=== PATIENT | male | born 1970 | race Caucasian/White ===

== ENCOUNTER 2016-06-08 20:17 | Emergency (ER) | payer BC ==
[~2016-06-08 20:17] MED LIST: ADVIL PO; AMOXICILLIN PO; DEX4 PO; DSS PO; ENDOCET1 TA3 PO; HUMI PO; PROTONIX PO; T PO; ZOFRAN4 PO; ZOVI200CAP PO
[2016-06-08 21:46] LABS: ER CBC TAT 0 Hrs 16 Mins; HEMATOCRIT 21.2 % (40.0-51.0); HEMOGLOBIN 7.2 g/dL (13.6-17.8); MEAN CORPUSCULAR HEMOGLOB 30.5 pg (26.0-34.0); MEAN CORPUSCULAR VOLUME 89.8 fL (80-100); MEAN PLATELET VOLUME 10.6 fL (9.2-13.0); PLATELET COUNT 85 10/3/uL (150-400); RBC DISTRIBUTION WIDTH 15.8 % (12.0-16.0); RED CELL COUNT 2.36 10/6/uL (4.7-6.1)
[2016-06-08 21:47] LABS: MANUAL DIFF YES %
[2016-06-08 21:54] LABS: CHLORIDE, SERUM 97 MMOL/L (96-112); POTASSIUM, SERUM 4.7 MMOL/L (3.5-5.3); SGOT(AST) 8 U/L (5-40); SGPT(ALT) 21 U/L (5-65); SODIUM, SERUM 136 MMOL/L (135-148); TOTAL BILIRUBIN 0.3 MG/DL (0-1.2)
[2016-06-08 21:55] LABS: A/G RATIO 1.1 (0.7-1.9); ALKALINE PHOSPHATASE 106 U/L (45-117); BUN (BLOOD UREA NITROGEN) 51 MG/DL (6-23); CO2 (CARBON DIOXIDE) 30 MMOL/L (24-34); CREATININE 8.63 MG/DL (0.70-1.30); GFR AFRICAN AMERICAN 8 ML/MIN (>=60); GFR NON AFRICAN AMERICAN 7 ML/MIN (>=60); GLOBULIN 2.8 G/DL (2.5-4.1); GLUCOSE, SERUM 119 MG/DL (60-99); TOTAL PROTEIN 5.8 G/DL (6.0-8.5)
[2016-06-08 21:55] LABS: ASCORBIC ACID (UR NOT ORDER) NEG (NEG); BILIRUBIN, URINE NEGATIVE (NEG); ER URINALYSIS TAT 0 Hrs 25 Mins; KETONE, URINE NEGATIVE (NEG); LEUKOCYTE ESTERASE(NOT OR TRACE (NEG); NITRITE (URINE) NEG (NEG); WBC (NOT ORDERED) (RFLEX) 5 (0-5)
[2016-06-08 21:57] LABS: LACTATE 0.6 MMOL/L (0.3-2.4)
[2016-06-08 22:01] LABS: INFLUENZA A SCREEN NEGATIVE (NEGATIVE); INFLUENZA B SCREEN NEGATIVE (NEGATIVE)
[2016-06-08 22:33] LABS: BAND NEUTROPHILS 1 %; EOSINOPHILS 1 %; EOSINOPHILS ABSOLUTE (CALC) 0.04 10/3/uL (0.0-0.53); ER DIFF TAT 1 Hrs 03 Mins; LYMPHOCYTES 7 %; LYMPHOCYTES ABSOLUTE (CALC) 0.28 10/3/uL (0.67-4.30); MONOCYTES 2 %; MONOCYTES ABSOLUTE (CALC) 0.08 10/3/uL (0.21-1.20); SEGMENTED NEUTROPHIL (0) 89 %; TOTAL NUCLEATED CELLS 100
[2016-06-08 22:34] LABS: ATYPICAL LYMPH OCC (0-2%) (0-5%); PLATELET ESTIMATE DEC (ADEQUATE)
[2016-10-11] MEDS ORDERED: ZOVI200CAP PO (17:45)
[2016-10-11] MEDS ORDERED: DEX4 PO (17:50)
[2016-10-11] MEDS ORDERED: RENVELA800 MG PO (17:52)
[2016-10-11] MEDS ORDERED: PROTONIX PO (17:52)
[2016-10-11] MEDS ORDERED: ROCALTROL0.5 MCG PO (17:53)
[2016-10-11] MEDS ORDERED: SPIRULINA500 MG PO (17:54)
[2016-10-11] MEDS ORDERED: CLARIT10 PO (17:54)
[2016-10-11] MEDS ORDERED: MAGNESIUM PO (17:54)
[2016-10-11] MEDS ORDERED: TUMSROLL PO (17:55)
[2016-10-11] MEDS ORDERED: REFRESH OPH (17:57)
== END 2016-06-09 01:07 | disposition home or self-care (01) ==
LOC: ER 20:17
PROVIDERS: Emergency Medicine
DX: R50.9 Fever, unspecified (principal); C90.00 Multiple myeloma not having achieved remission; N18.6 End stage renal disease; Z79.899 Other long term (current) drug therapy
CPT/HCPCS: 71010; 80053; 81001; 83605; 85025; 87040; 87804; 93005; 96365; 96368; 99284; J1956; J3370

== ENCOUNTER 2016-06-13 18:47 | Inpatient (IN) | payer BC ==
--- NOTE | ~2016-06-13 | OP ---
Record Of Operation [facility] [address] [place]. [address] NAME: ALEKS DRUMMOND III : 70 STATUS : ADM IN PAT#: [id number] AGE: 46 ADM/REG DATE : 06/13/16 MR#: [id number] REPORT SERV DATE: 06/17/16 DICTATED BY: RANJIT PICHARDO JR. DATE: 06/17/16 REPORT STATUS : Draft TRANSCRIBED BY: MODL DATE: 06/17/16 DATE OF PROCEDURE: 06/17/2016 PREOPERATIVE DIAGNOSIS: End-stage renal disease secondary to multiple myeloma. POSTOPERATIVE DIAGNOSIS: End-stage renal disease secondary to multiple myeloma. OPERATION: Left Mahesh fistula. SURGEON: Ranjit Pichardo M.D. HISTORY: This is a 46-year-old white male, who has multiple myeloma and starting dialysis. He already has a PermCath catheter. PROCEDURE IN DETAIL: The patient was placed on the operating room table. The left arm was prepped and draped in usual sterile manner. Ultrasound machine was used to look for a vein. A suitable vein was found. A transverse incision was made just proximal to the left wrist. The cephalic vein was identified and dissected out proximally and distally. The radial artery was likewise dissected out proximally and distally. The vein was transected distally and swung in a medial fashion over to the artery where an end-to-side anastomosis was done with spatulation using 6-0 Prolene suture. Upon release of clamps, there was excellent flow up into the vein. Care was taken to make sure the vein was not kinked. The subcutaneous tissue was closed with 4-0 Vicryl. The patient tolerated the procedure well and taken back to recovery room in fair condition. There were no intraoperative complications. Estimated blood loss was negligible. DF/ABNER Ranjit Pichardo Jr., M.D. / [id number] CC: Lee Teresa Franklin H
--- NOTE | ~2016-06-13 | HP ---
History And Physical [address] [facility] [place]. [address] NAME: ALEKS DRUMMOND III : 70 STATUS : ADM IN PAT#: [id number] AGE: 46 ADM/REG DATE : 06/13/16 MR#: [id number] REPORT SERV DATE: 06/13/16 DICTATED BY: AVINASH SOSA DATE: 06/13/16 REPORT STATUS : Draft TRANSCRIBED BY: MODL DATE: 06/13/16 DATE OF ADMISSION: 06/13/2016 HISTORY OF PRESENT ILLNESS: Mr. Drummond is a 46-year-old white male with multiple myeloma and acute renal failure, hemodialysis as an outpatient at [facility] on Friday, Friday, Friday. His last dialysis was on Friday and no problems today, went to work. He works at the [employer]. He did well, came home, bit tired, did not feel his normal self and his noted he was running a fever, came to the emergency room and temperature here was 101, and admitted to the hospital for antibiotics. He had a similar event last Friday. He came to the emergency room, was given antibiotics and sent home. He did not receive any further antibiotics as an outpatient as he did not have any further fever and cultures done then are negative now at four days. HOME MEDICATIONS: Acyclovir, calcium carbonate, cyclophosphamide 50 mg capsule total of 675 mg p.o. every seven days, dexamethasone 4 mg tablets 40 mg daily 4 days on, 4 days off, Zofran 4 mg q.4 hours p.r.n. nausea and vomiting, Protonix 40 mg daily, Renvela 800 mg three times a day with meals. ALLERGIES: NO KNOWN DRUG ALLERGIES. REVIEW OF SYSTEMS: Feeling great. Dialyzing without a problem. Right IJ PermCath. Very complimentary of the staff at [facility]. Enjoying his work. His says he has been his normal self, cooking, feeling good, assisting around the house, and feeling well until today. He did have a problem on Friday last week, when he felt weak and tired, but overall is without complaints until today. SOCIAL HISTORY: . Working at the [employer]. He does not abuse alcohol, stopped alcohol completely last December. Did smoke in the past, but none recently. No illicit substance abuse. FAMILY HISTORY: Both parents are doing well with skin cancers, but no kidney disease. No one has been sick around his home. The does not have any fever or chills. PHYSICAL EXAMINATION: VITAL SIGNS: Blood pressure is 150/89, respirations 16, temperature 100.8, oxygenation 97% on room air. GENERAL: Alert, cooperative, and in no acute distress. Oriented x3. says he is making sense and good memory. HEENT: Otherwise unremarkable. Right IJ PermCath, nontender to palpation. LUNGS: Clear. CARDIAC: Without murmurs, gallops, or rubs. ABDOMEN: Soft, benign. Bowel sounds present. Nontender. No megaly. EXTREMITIES: With no edema. Good pulses. No AV fistula and no open sores. Good range of motion. NEUROLOGICALLY: Intact without any weakness detectable and normal reflexes. History And Physical [address] [address] NAME: ALEKS DRUMMOND III : 70 STATUS : ADM IN [facility]#: [id number] AGE: 46 ADM/REG DATE : 06/13/16 MR#: [id number] REPORT SERV DATE: 06/13/16 DICTATED BY: AVINASH SOSA DATE: 06/13/16 REPORT STATUS : Draft TRANSCRIBED BY: ABNRE DATE: 06/13/16 LABORATORY DATA: Sodium 137, potassium 4.0, chloride 96, CO2 of 28, with a BUN of 51, creatinine 7.74, glucose 90, calcium 6.9. Total protein 6.3, albumin 3.4. Normal liver enzymes except for elevated alkaline phos 130. White count of 3.1, hemoglobin 8.5, hematocrit 25.3, and platelet count 98,000. Chest x-ray, no acute cardiopulmonary processes is radiographically evident with right IJ central line tip remaining in superior vena cava. No pneumothorax present. No bony lesions identified significance. ASSESSMENT: 1. Febrile in a patient with multiple myeloma undergoing chemotherapy. We will admit. Vancomycin and Zosyn ordered. Dr. Quinn Benitez will see in a.m. 2. Acute renal failure secondary to multiple myeloma. May well be at end-stage renal disease, but at present, he is being treated like acute renal failure with the Perma cath. No AV fistula placement. No tenderness at the site of his PermCath placement. 3. Anemia of multiple myeloma, not getting any erythropoietin. 4. Past history left arm rotator cuff injury and bone spur treated surgically in December 2015. History of cat scratch fever as a teenager at age 19. 5. Multiple myeloma with lytic bone lesions. Treated with chemotherapy, currently on cyclophosphamide, Velcade, Decadron. PLAN: We will admit. Hemodialysis tomorrow. Dr. Benitez will see in a.m. and we will hold chemo till Dr. Benitez sees him. Tomorrow is his last dose of cyclosporine ordered. Yesterday was his fourth day in a row of Decadron and Velcade not ordered for some time (monthly). MARITA/ABNER Avinash Sosa M.D. / [id number] CC: Lee Teresa M.D.
--- NOTE | ~2016-06-13 | DS ---
Discharge Summary [facility] [address] [facility] [place]. [address] NAME: ALEKS DRUMMOND III : 70 STATUS : DIS IN PAT#: [id number] AGE: 46 ADM/REG DATE : 06/13/16 MR#: [id number] REPORT SERV DATE: 06/27/16 DICTATED BY: AVINASH SOSA DATE: 06/26/16 REPORT STATUS : Draft TRANSCRIBED BY: MODAruna DATE: 06/26/16 Data Collection from hospitalization DISCHARGE DIAGNOSES: 1. Acute kidney injury secondary to multiple [id number] renal disease. 2. Multiple myeloma. 3. Sepsis. 4. Anemia. 5. Former smoker. CONSULTATIONS: 1. Ranjit Pichardo M.D. 2. Levi Wheeler M.D. PROCEDURES PERFORMED: Left Mahesh fistula 06/17/2016. DISCHARGE MEDICATIONS: 1. Zovirax 200 mg twice a day. 2. Tums 1000 mg twice a day. 3. Cyclophosphamide 675 mg every seven days. 4. Decadron 40 mg as instructed. 5. Zofran 4 mg every 4 hours as needed. 6. Percocet 5/325 mg one to two tablets every 3 hours as needed. 7. Protonix 40 mg every morning. 8. Renvela 800 mg three times a day with meals. 9. Vancomycin as instructed. CONDITION AT DISCHARGE: Stable. DISPOSITION: The patient was discharged home on a renal diet with activities as instructed. He would follow up with me as instructed. He would follow up for outpatient dialysis on 06/19/2016. HOSPITAL COURSE: This is a 46-year-old man who has multiple myeloma and acute renal failure. He undergoes hemodialysis as an outpatient at the [facility] on Mondays, Wednesdays, and Fridays. His last dialysis was on Friday prior to admission. He had gone to work on the day of this admission, where he works at the [employer]. He did well and came home. He said he felt a bit tired and did not feel his normal self. His noted that he was running a fever. He came to the emergency room and his temperature was 101. He was admitted to the hospital at this time for further evaluation and treatment. Upon admission, he was placed on vancomycin and Zosyn. The patient had a similar event the Friday prior to this admission and he came to the emergency room and had being given antibiotics and sent home. He did not receive any further antibiotics as an outpatient as he did not have any further fever. Cultures that were done at that time were negative now at four days. White count was 3.1. Chest x-ray showed no acute cardiopulmonary processes with right IJ central line tip remaining in the superior vena cava. No pneumothorax was Discharge Summary [address] [place]. [address] NAME: ALEKS DRUMMOND III : 70 STATUS : DIS IN PAT#: [id number] AGE: 46 ADM/REG DATE : 06/13/16 MR#: [id number] REPORT SERV DATE: 06/27/16 DICTATED BY: AVINASH SOSA DATE: 06/26/16 REPORT STATUS : Draft TRANSCRIBED BY: ABNER DATE: 06/26/16 present. No bony lesion is identified. The patient has acute renal failure secondary to multiple myeloma. It was felt that he may well be at end stage renal disease, but at the present time he was being treated like this was acute renal failure with the PermCath. No AV fistula placement was planned at this time. He had no tenderness at the site of his PermCath placement. He does have anemia of multiple myeloma. He was not receiving any erythropoietin. He does have multiple myeloma with lytic bone lesion. He was being treated with chemotherapy. The following day, he was afebrile. Lungs were clear. Procalcitonin level was 0.68. He was seen by Dr. Levi Wheeler. The patient said he felt great. He had a normal respiratory effort. It was felt that he had a presumed Vas-Cath infection. It is was felt that this had resolved with Zosyn and vancomycin. His cultures were negative to date. He has had pancytopenia secondary to chemotherapy. On the , he remained afebrile on antibiotics. His cultures had revealed no growth. He did develop some loose stools after eating [place] steak. He remained afebrile. It was still suspected that the Vas- Cath was infected. All of his cultures remained negative. Zosyn was stopped. He would receive vancomycin with dialysis. He was seen by Dr. Ranjit Pichardo. The patient was starting dialysis, he already has a PermCath catheter. It was felt that he would need a left Mahesh fistula. The patient was taken to the operating room on 06/17/[address] Ranjit Pichardo, where he underwent the above mentioned procedure. He tolerated this well. There were no complications. His Zosyn had been stopped. He had no new complaints. Hemodialysis therapy was performed. His lungs remained clear. He was afebrile. Discharge instructions were given. Due to his improved and stable condition, he was discharged home with the above-stated instructions. Information collected by: Harleen Payton I submit the above information as my discharge summary. TG/MODL Avinash Sosa M.D. / [id number] CC: Lee Teresa PA-C Daniel Fisher Jr., M.D. Benjamin R Nadeau, MD
[2016-06-13 15:22] LABS: BASOPHILS 0 %; EOSINOPHILS 0 %; ER CBC TAT 0 Hrs 08 Mins; HEMATOCRIT 25.3 % (40.0-51.0); HEMOGLOBIN 8.5 g/dL (13.6-17.8); IMMATURE GRANULOCYTES 2.9 %; IMMATURE GRANULOCYTES ABSOLUTE 0.09 10/3/uL (0.0-0.11); LYMPHOCYTES 11.1 %; LYMPHOCYTES ABSOLUTE 0.34 10/3/uL (0.67-4.30); MANUAL DIFF NO %; MEAN CORPUS HGB CONC 33.6 g/dL (32.0-36.0); MEAN CORPUSCULAR HEMOGLOB 30.1 pg (26.0-34.0); MEAN CORPUSCULAR VOLUME 89.7 fL (80-100); MEAN PLATELET VOLUME 8.9 fL (9.2-13.0); MONOCYTES 9.1 %; MONOCYTES ABSOLUTE 0.28 10/3/uL (0.21-1.20); NEUTROPHILS 76.9 %; NEUTROPHILS ABSOLUTE 2.36 10/3/uL (2.02-8.40); PLATELET COUNT 98 10/3/uL (150-400); RBC DISTRIBUTION WIDTH 15.8 % (12.0-16.0); RED CELL COUNT 2.82 10/6/uL (4.7-6.1); WHITE BLOOD CELLS 3.1 10/3/uL (4.5-10.5)
[2016-06-13 15:36] LABS: A/G RATIO 1.2 (0.7-1.9); ALBUMIN 3.4 G/DL (3.5-5.0); ALKALINE PHOSPHATASE 130 U/L (45-117); BUN (BLOOD UREA NITROGEN) 51 MG/DL (6-23); CALCIUM, SERUM 6.9 MG/DL (8.5-10.4); CHLORIDE, SERUM 96 MMOL/L (96-112); CO2 (CARBON DIOXIDE) 28 MMOL/L (24-34); CREATININE 7.74 MG/DL (0.70-1.30); GFR AFRICAN AMERICAN 9 ML/MIN (>=60); GFR NON AFRICAN AMERICAN 8 ML/MIN (>=60); GLOBULIN 2.9 G/DL (2.5-4.1); GLUCOSE, SERUM 90 MG/DL (60-99); SGOT(AST) 22 U/L (5-40); SGPT(ALT) 34 U/L (5-65); SODIUM, SERUM 137 MMOL/L (135-148); TOTAL BILIRUBIN 0.4 MG/DL (0-1.2); TOTAL PROTEIN 6.3 G/DL (6.0-8.5)
[2016-06-13 18:59] LABS: INFLUENZA A SCREEN NEGATIVE (NEGATIVE); INFLUENZA B SCREEN NEGATIVE (NEGATIVE)
[2016-06-13] MEDS ORDERED: PROTONIX PO (19:59)
[2016-06-13] MEDS ORDERED: CYCLOPHOSPHAMID50 MG PO (20:00)
[2016-06-13] MEDS ORDERED: SEVE800T PO (20:01)
[2016-06-13] MEDS ORDERED: DEX4 PO (20:01)
[2016-06-13] MEDS ORDERED: ZOVI200CAP PO (20:02)
[2016-06-13] MEDS ORDERED: TUMSROLL PO (20:02)
[2016-06-13] MEDS ORDERED: ZOFRAN4 PO (20:02)
[2016-06-13 22:00] LABS: LACTATE 0.4 MMOL/L (0.3-2.4)
[2016-06-13 22:22] LABS: ASCORBIC ACID (UR NOT ORDER) NEG (NEG); BILIRUBIN, URINE NEGATIVE (NEG); KETONE, URINE NEGATIVE (NEG); LEUKOCYTE ESTERASE(NOT OR SMALL (NEG); NITRITE (URINE) NEG (NEG); WBC (NOT ORDERED) (RFLEX) 7 (0-5)
[2016-06-13 22:23] LABS: ER URINALYSIS TAT 0 Hrs 46 Mins
[2016-06-14 05:13] LABS: HEMOGLOBIN 7.4 g/dL (13.6-17.8); MEAN CORPUS HGB CONC 32.9 g/dL (32.0-36.0); MEAN CORPUSCULAR HEMOGLOB 29.6 pg (26.0-34.0); MEAN PLATELET VOLUME 8.7 fL (9.2-13.0); PLATELET COUNT 84 10/3/uL (150-400); RBC DISTRIBUTION WIDTH 16.2 % (12.0-16.0); WHITE BLOOD CELLS 2.7 10/3/uL (4.5-10.5)
[2016-06-14 05:17] LABS: CHLORIDE, SERUM 101 MMOL/L (96-112); CO2 (CARBON DIOXIDE) 25 MMOL/L (24-34); GLUCOSE, SERUM 76 MG/DL (60-99); POTASSIUM, SERUM 4.6 MMOL/L (3.5-5.3); SODIUM, SERUM 139 MMOL/L (135-148)
[2016-06-14 05:24] LABS: ALBUMIN 2.6 G/DL (3.5-5.0); BUN (BLOOD UREA NITROGEN) 65 MG/DL (6-23); CALCIUM, SERUM 6.6 MG/DL (8.5-10.4); CREATININE 9.34 MG/DL (0.70-1.30); GFR AFRICAN AMERICAN 7 ML/MIN (>=60); GFR NON AFRICAN AMERICAN 6 ML/MIN (>=60)
[2016-06-14 05:28] LABS: HEMATOCRIT 22.5 % (40.0-51.0)
[2016-06-14 05:29] LABS: MANUAL DIFF YES %
[2016-06-14 05:51] LABS: BAND NEUTROPHILS 1 %; EOSINOPHILS 1 %; EOSINOPHILS ABSOLUTE (CALC) 0.03 10/3/uL (0.0-0.53); IMMATURE GRANS ABSOLUTE (CALC) 0.03 10/3/uL (0.0-0.11); LYMPHOCYTES 5 %; LYMPHOCYTES ABSOLUTE (CALC) 0.14 10/3/uL (0.67-4.30); METAMYELOCYTES 1 %; MONOCYTES 10 %; MONOCYTES ABSOLUTE (CALC) 0.27 10/3/uL (0.21-1.20); NEUTROPHILS ABSOLUTE (CALC) 2.24 10/3/uL (2.02-8.40); PLATELET ESTIMATE DEC (ADEQUATE); RBC MORPHOLOGY NORM (NORMAL); SEGMENTED NEUTROPHIL (0) 82 %; TOTAL NUCLEATED CELLS 100
[2016-06-14 06:45] LABS: PROCALCITONIN 0.68 ng/mL (<0.5)
[2016-06-15 06:57] LABS: HEMOGLOBIN 7.7 g/dL (13.6-17.8); MEAN CORPUS HGB CONC 32.1 g/dL (32.0-36.0); MEAN CORPUSCULAR HEMOGLOB 29.4 pg (26.0-34.0); MEAN CORPUSCULAR VOLUME 91.6 fL (80-100); MEAN PLATELET VOLUME 8.9 fL (9.2-13.0); PLATELET COUNT 87 10/3/uL (150-400); RED CELL COUNT 2.62 10/6/uL (4.7-6.1)
[2016-06-15 07:14] LABS: ALBUMIN 2.4 G/DL (3.5-5.0); BUN (BLOOD UREA NITROGEN) 41 MG/DL (6-23); CALCIUM, SERUM 6.8 MG/DL (8.5-10.4); CHLORIDE, SERUM 106 MMOL/L (96-112); CO2 (CARBON DIOXIDE) 28 MMOL/L (24-34); CREATININE 7.21 MG/DL (0.70-1.30); GFR AFRICAN AMERICAN 10 ML/MIN (>=60); GFR NON AFRICAN AMERICAN 8 ML/MIN (>=60); GLUCOSE, SERUM 88 MG/DL (60-99); PHOSPHORUS, SERUM 3.9 MG/DL (2.5-4.5); POTASSIUM, SERUM 4.5 MMOL/L (3.5-5.3); SODIUM, SERUM 144 MMOL/L (135-148)
[2016-06-15 07:32] LABS: WHITE BLOOD CELLS 2.4 10/3/uL (4.5-10.5)
[2016-06-15 07:33] LABS: MANUAL DIFF YES %
[2016-06-15 08:07] LABS: BAND NEUTROPHILS 5 %; EOSINOPHILS 1 %; EOSINOPHILS ABSOLUTE (CALC) 0.02 10/3/uL (0.0-0.53); IMMATURE GRANS ABSOLUTE (CALC) 0.02 10/3/uL (0.0-0.11); LYMPHOCYTES 12 %; LYMPHOCYTES ABSOLUTE (CALC) 0.29 10/3/uL (0.67-4.30); METAMYELOCYTES 1 %; MONOCYTES 9 %; MONOCYTES ABSOLUTE (CALC) 0.22 10/3/uL (0.21-1.20); NEUTROPHILS ABSOLUTE (CALC) 1.85 10/3/uL (2.02-8.40); PLATELET ESTIMATE DEC (ADEQUATE); RBC MORPHOLOGY NORM (NORMAL); SEGMENTED NEUTROPHIL (0) 72 %; TOTAL NUCLEATED CELLS 100
[2016-06-16 06:50] LABS: HEMATOCRIT 22.6 % (40.0-51.0); HEMOGLOBIN 7.6 g/dL (13.6-17.8); MEAN CORPUS HGB CONC 33.6 g/dL (32.0-36.0); MEAN CORPUSCULAR HEMOGLOB 30.3 pg (26.0-34.0); MEAN PLATELET VOLUME 8.7 fL (9.2-13.0); PLATELET COUNT 90 10/3/uL (150-400); RBC DISTRIBUTION WIDTH 15.9 % (12.0-16.0); RED CELL COUNT 2.51 10/6/uL (4.7-6.1); WHITE BLOOD CELLS 2.6 10/3/uL (4.5-10.5)
[2016-06-16 06:52] LABS: MANUAL DIFF YES %
[2016-06-16 07:03] LABS: ALBUMIN 2.3 G/DL (3.5-5.0); CHLORIDE, SERUM 108 MMOL/L (96-112); CO2 (CARBON DIOXIDE) 24 MMOL/L (24-34); GLUCOSE, SERUM 82 MG/DL (60-99); PHOSPHORUS, SERUM 3.2 MG/DL (2.5-4.5); POTASSIUM, SERUM 4.8 MMOL/L (3.5-5.3); SODIUM, SERUM 144 MMOL/L (135-148)
[2016-06-16 07:04] LABS: BUN (BLOOD UREA NITROGEN) 52 MG/DL (6-23); CALCIUM, SERUM 6.7 MG/DL (8.5-10.4); CREATININE 9.75 MG/DL (0.70-1.30); GFR AFRICAN AMERICAN 7 ML/MIN (>=60); GFR NON AFRICAN AMERICAN 6 ML/MIN (>=60)
[2016-06-16 07:19] LABS: BAND NEUTROPHILS 8 %; EOSINOPHILS 2 %; EOSINOPHILS ABSOLUTE (CALC) 0.05 10/3/uL (0.0-0.53); IMMATURE GRANS ABSOLUTE (CALC) 0.03 10/3/uL (0.0-0.11); LYMPHOCYTES 4 %; METAMYELOCYTES 1 %; MONOCYTES 2 %; MONOCYTES ABSOLUTE (CALC) 0.05 10/3/uL (0.21-1.20); NEUTROPHILS ABSOLUTE (CALC) 2.37 10/3/uL (2.02-8.40); PLATELET ESTIMATE DEC (ADEQUATE); RBC MORPHOLOGY NORM (NORMAL); SEGMENTED NEUTROPHIL (0) 83 %; TOTAL NUCLEATED CELLS 100
[2016-06-17 06:36] LABS: HEMATOCRIT 22.1 % (40.0-51.0); HEMOGLOBIN 7.4 g/dL (13.6-17.8); MEAN CORPUS HGB CONC 33.5 g/dL (32.0-36.0); MEAN CORPUSCULAR HEMOGLOB 30.1 pg (26.0-34.0); MEAN CORPUSCULAR VOLUME 89.8 fL (80-100); MEAN PLATELET VOLUME 8.7 fL (9.2-13.0); PLATELET COUNT 93 10/3/uL (150-400); RBC DISTRIBUTION WIDTH 15.4 % (12.0-16.0); RED CELL COUNT 2.46 10/6/uL (4.7-6.1); WHITE BLOOD CELLS 2.5 10/3/uL (4.5-10.5)
[2016-06-17 06:38] LABS: MANUAL DIFF YES %
[2016-06-17 06:53] LABS: ALBUMIN 2.4 G/DL (3.5-5.0); CALCIUM, SERUM 7.1 MG/DL (8.5-10.4); CHLORIDE, SERUM 108 MMOL/L (96-112); CO2 (CARBON DIOXIDE) 24 MMOL/L (24-34); GFR AFRICAN AMERICAN 5 ML/MIN (>=60); GFR NON AFRICAN AMERICAN 4 ML/MIN (>=60); GLUCOSE, SERUM 84 MG/DL (60-99); PHOSPHORUS, SERUM 3.8 MG/DL (2.5-4.5); SODIUM, SERUM 143 MMOL/L (135-148)
[2016-06-17 06:54] LABS: BUN (BLOOD UREA NITROGEN) 62 MG/DL (6-23)
[2016-06-17 07:15] LABS: BAND NEUTROPHILS 12 %; LYMPHOCYTES 14 %; LYMPHOCYTES ABSOLUTE (CALC) 0.35 10/3/uL (0.67-4.30); MONOCYTES 2 %; MONOCYTES ABSOLUTE (CALC) 0.05 10/3/uL (0.21-1.20); SEGMENTED NEUTROPHIL (0) 72 %; TOTAL NUCLEATED CELLS 100
[2016-06-17 07:16] LABS: ANISOCYTOSIS 1+ (5-10/OIF) (0-5/OIF); PLATELET ESTIMATE DEC (ADEQUATE); POLYCHROMASIA 1+ (2-5/OIF) (0-1/OIF); SPHEROCYTES FEW (3-10/OIF)
[2016-06-17] MEDS ORDERED: PCET PO (17:32)
[2016-06-17] MEDS ORDERED: VANCO1P (17:33)
[2016-10-11] MEDS ORDERED: ZOVI200CAP PO (17:45)
[2016-10-11] MEDS ORDERED: DEX4 PO (17:50)
[2016-10-11] MEDS ORDERED: PROTONIX PO (17:52)
[2016-10-11] MEDS ORDERED: RENVELA800 MG PO (17:52)
[2016-10-11] MEDS ORDERED: ROCALTROL0.5 MCG PO (17:53)
[2016-10-11] MEDS ORDERED: CLARIT10 PO (17:54)
[2016-10-11] MEDS ORDERED: SPIRULINA500 MG PO (17:54)
[2016-10-11] MEDS ORDERED: MAGNESIUM PO (17:54)
[2016-10-11] MEDS ORDERED: TUMSROLL PO (17:55)
[2016-10-11] MEDS ORDERED: REFRESH OPH (17:57)
== END 2016-06-17 18:50 | disposition home or self-care (01) | DRG 673 ==
LOC: ER 18:47 → 4EA 20:48
PROVIDERS: Emergency Medicine; Internal Medicine Hematology & Oncology; Internal Medicine Nephrology; Surgery
PROC: 5A1D60Z (ICD-10-PCS; 2016-06-14)
PROC: 031C0ZF Bypass Left Radial Artery to Lower Arm Vein, Open Approach (ICD-10-PCS; principal; 2016-06-17 13:45)
DX: N18.6 End stage renal disease (principal); D61.810 Antineoplastic chemotherapy induced pancytopenia; C90.00 Multiple myeloma not having achieved remission; C79.51 Secondary malignant neoplasm of bone; N17.9 Acute kidney failure, unspecified; D63.0 Anemia in neoplastic disease; Z99.2 Dependence on renal dialysis
CPT/HCPCS: 71020; 80053; 80069; 80202; 81001; 83605; 83735; 84145; 85025; 87040; 87086; 87804; 96365; 99285; A9270-GY; G0257; J2250; J2405; J2543; J3010; J3370

== ENCOUNTER 2016-07-10 16:01 | Inpatient (IN) | payer BC ==
--- NOTE | ~2016-07-10 | HP ---
History And Physical [facility] [address] [facility] [place]. [address] NAME: ALEKS DRUMMOND III : 70 STATUS : ADM IN PAT#: [id number] AGE: 46 ADM/REG DATE : 07/10/16 MR#: [id number] REPORT SERV DATE: 07/11/16 DICTATED BY: JUAN M PARKINSON DATE: 07/10/16 REPORT STATUS : Draft TRANSCRIBED BY: MODAruna DATE: 07/10/16 DATE OF ADMISSION: 07/10/2016 CHIEF COMPLAINT: Elevated temperature and leukopenia. HISTORY OF PRESENT ILLNESS: This is a 46-year-old gentleman, who has probable end- stage renal disease, initially thought to be acute renal failure, secondary to multiple myeloma and who receives hemodialysis at the [facility]. He was seen briefly at his oncologist's office today and lab work was obtained. He had continuous chills on dialysis today, but he did complete his treatment. He remained hemodynamically stable throughout the treatment. He was found on his lab work to have a white cell count of 1 and also platelets down to 40. He is on routine Cytoxan therapy, once weekly infusion for treatment of his myeloma. The gentleman was noted to have a temperature of 100.6, and after consulting with the assembler installer general, it was determined that it would be appropriate for him to be admitted to [facility] with leukopenic precautions and also for workup of temperature increase in the setting of neutropenia. He denies any focal complaint, other than malaise and chills on dialysis today. He feels better now that he is off dialysis and he did eat dinner tonight. PAST MEDICAL HISTORY: 1. Multiple myeloma, diagnosed in May 2016. I actually did the initial consultation from the renal standpoint. 2. Acute renal failure, May 2016 secondary to multiple myeloma. Receiving hemodialysis via right IJ tunneled catheter at the [facility]. 3. Left forearm AV fistula, placed by Dr. Ranjit Pichardo in mid May 2016. 4. Chronic anemia secondary to myeloma and chronic kidney disease. 5. Remote tobacco abuse. 6. Otherwise healthy leading up to the time of his acute renal failure. ALLERGIES: NO KNOWN DRUG ALLERGIES. HOME MEDICATIONS: 1. Acetaminophen p.r.n. 2. Acyclovir 200 mg oral twice daily. 3. Calcitriol 0.5 mcg oral twice daily. 4. Calcium carbonate 1500 mg oral three times daily with meals. 5. Cyclophosphamide 675 mg oral on Fridays. He does not receive infusions, but takes an oral dosage once weekly. 6. Decadron 4 mg tablets, 40 mg taken oral daily for four days, which was planned to start on 07/12/2016 and I assume that he takes these to coincide with cyclophosphamide cycle. 7. Loratadine as needed for allergies 10 mg once daily. 8. Zofran 4 mg oral twice daily p.r.n. nausea and vomiting. 9. Pantoprazole 40 mg oral every morning with breakfast. 10.Renvela. Actually, I am told it is on hold due to low phosphorus levels. 11.Zoledronic acid, Zometa one dosage IV every three months. History And Physical [address] [place]. [address] NAME: ALEKS DRUMMOND III : 70 STATUS : ADM IN [facility]#: [id number] AGE: 46 ADM/REG DATE : 07/10/16 MR#: [id number] REPORT SERV DATE: 07/11/16 DICTATED BY: JUAN M PARKINSON DATE: 07/10/16 REPORT STATUS : Draft TRANSCRIBED BY: ABNER DATE: 07/10/16 SURGICAL HISTORY: 1. Shoulder surgery for rotator cuff injury back in December 2015. 2. Remote cat-scratch fever as a teenager, requiring lymph node dissection in his left arm at that time. SOCIAL HISTORY: He is and has a very supportive and family. 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 He does not abuse alcohol or any illicit substance. He quit drinking ethanol containing beverages back in December 2015. He has quit smoking completely. FAMILY HISTORY: Both parents alive and well. Both parents had skin cancers apparently. No family history of kidney diseases. REVIEW OF SYSTEMS: GENERAL: As outlined above. GI: Denies nausea, vomiting, or abdominal pain. No diarrhea at this point. : Denies dysuria. He indicates urinary output is diminished of late. CARDIOVASCULAR: Denies chest pain. RESPIRATORY: Denies shortness of breath or any coughing. No sinus pain or tenderness. He denies any stiffness in the neck. NEUROLOGIC: Denies headaches. SKIN: No acute rashes. All other review of systems was negative or noncontributory. PHYSICAL EXAMINATION: VITAL SIGNS: Temperature 99.8, heart rate 124, respiratory rate 16, blood pressure 129/66. GENERAL: He is well-developed and well-nourished gentleman, who appears his stated age. He is in no distress. HEENT: Normocephalic and atraumatic. External ears and nose normal. Sinuses nontender. Oropharynx, mucous membranes are moist and pale. Free of any ulcerations or exudates. Jaw was nontender to palpation. The sinuses were nontender to palpation. Eye exam was conjunctivae were free of any hemorrhages or exudates. Sclerae anicteric. Extraocular motor function is intact without pain. No drainage. NECK: Supple. Easily movable without meningismus. No palpable masses or nodules. Trachea midline. LYMPHATIC: Anterior and posterior neck, supraclavicular, axillary and abdominal regions were free of lymphadenopathy. RESPIRATORY: Efforts are nonlabored. Lung blevins are clear to auscultation throughout. Additionally palpation of the right IJ tunneled catheter, tunnel over the chest wall was free of any induration, tenderness, or expressible drainage. CARDIOVASCULAR: Regular rate and rhythm is appreciated without any gallop, rub, or murmur. 1+ pitting edema of the shins near the ankles bilaterally. No peripheral cyanosis. ABDOMEN: Soft, nontender. Positive bowel sounds noted throughout. No appreciable organomegaly. Percussion elicits no fluid wave. No guarding to palpation. SKIN: No rashes. No breakdown. No discoloration. No cyanosis. Skin turgor over the chest wall was within normal limits. History And Physical [address] [address] NAME: ALEKS DRUMMOND III : 70 STATUS : ADM IN [facility]#: [id number] AGE: 46 ADM/REG DATE : 07/10/16 MR#: [id number] REPORT SERV DATE: 07/11/16 DICTATED BY: JUAN M PARKINSON DATE: 07/10/16 REPORT STATUS : Draft TRANSCRIBED BY: MODL DATE: 07/10/16 STUDIES: Chest x-ray reviewed by me. PA and lateral view reveals right IJ tunneled catheter in proper position. No acute infiltrates. No bony lesions visualized. Chemistry: Sodium 138, potassium 4.3, chloride 101, CO2 of 28, BUN 26, creatinine of 4.64, calcium 8.3. CBC: White cell count 1, hemoglobin 8.1, hematocrit 23.2%, platelets 40. Procalcitonin level 1.15. IMPRESSIONS: 1. Low-grade temperature increase in the setting of leukopenia. Infectious source not obvious. Elevated procalcitonin does raise concern for possibility of bacterial infection. Blood cultures have been sent and are presently pending. Chest x-ray was unremarkable. 2. Leukopenia with neutropenia and the patient with multiple myeloma, on Cytoxan therapy. 3. Multiple myeloma. 4. End-stage renal disease. I did not mention above, but his left forearm AV fistula is well developed and has an excellent thrill. No sign of any infection or induration over that side as well. No evidence to suggest tunnelled catheter tunnel infection. PLAN: 1. Blood cultures pending. 2. Urine culture. 3. Vancomycin and cefepime being given. Cefepime, will continue 1 g IV q.24 hours. 4. Renal diet. 5. Hematology consult to be seen on rounds. 6. Consider Infectious Disease consult if symptoms persist and no clear diagnosis is made. MEMO/ABNER Juan M Parkinson M.D. / [id number] CC: Lee Pride FRANKLIN H
--- NOTE | ~2016-07-10 | DS ---
Discharge Summary [facility] [address] [place]. [address] NAME: ALEKS DRUMMOND III : 70 STATUS : DIS IN PAT#: [id number] AGE: 46 ADM/REG DATE : 07/10/16 MR#: [id number] REPORT SERV DATE: 07/23/16 DICTATED BY: JUAN M PARKINSON DATE: 07/23/16 REPORT STATUS : Draft TRANSCRIBED BY: ABNER DATE: 07/23/16 Data Collection from hospitalization DISCHARGE DIAGNOSES: 1. Neutropenic fever. 2. Multiple myeloma. 3. End-stage renal disease. 4. Anemia. 5. Pancytopenia. 6. Former smoker. CONSULTATIONS: Quinn Benitez M.D. PROCEDURES: None. DISCHARGE MEDICATIONS: Tylenol 1000 mg twice a day as needed, Zovirax 200 mg twice a day, Rocaltrol 0.5 mcg twice a day, Tums 1500 mg three times a day, cyclophosphamide 675 mg on Fridays, Decadron 40 mg x4 days as instructed, Levaquin 750 mg every 48 hours, Claritin 10 mg daily, Zofran 4 mg twice a day as needed, Protonix 40 mg every morning, Renvela 800 mg three times a day with meals, Zometa 1 dose IV every three months as instructed. CONDITION AT DISCHARGE: Stable. DISPOSITION: The patient was discharged home on a renal diet with activities as instructed. He would follow up with Dr. Quinn Benitez on 07/16/2016. HOSPITAL COURSE: This is a 46-year-old man who has probable end-stage renal disease, initially felt to be acute renal failure secondary to multiple myeloma. He receives hemodialysis at the [facility]. He was briefly seen at his oncologist's office on the day of this admission and lab work was obtained. He had continuous chills on dialysis on the day of this admission, but he did complete his treatment. He remained hemodynamically stable throughout the treatment. He was found on lab work to have a white cell count of 1 and platelets were down to 40. He is on routine Cytoxan therapy once weekly infusion for treatment of his myeloma. The patient was noted to have a temperature of 100.6 and after consulting with the area forester, it was determined that it would be appropriate for him to be admitted to [facility] with leukopenic precautions and also for workup of temperature increase in the setting of neutropenia. He denied any focal complaints other than malaise and chills on dialysis. He was feeling better now that he was off dialysis and he did eat dinner that evening. He was admitted to the hospital for further evaluation and treatment. Upon admission, procalcitonin level was elevated which did raise concern for the possibility of bacterial infection. Blood cultures were obtained. Chest x-ray was unremarkable. Blood and urine cultures were pending. Vancomycin and cefepime were being given. He was placed on a renal diet. The following day, his temperature had increased that afternoon. Chest x- ray was clear. White count was 0.8. Urinalysis was negative. Blood cultures were negative to date. His lungs were clear to auscultation. Respirations were unlabored. He was seen by Dr. Quinn Benitez. The patient was complaining of aching in his hips, legs, and back. Discharge Summary [address] [address] NAME: ALEKS DRUMMOND III : 70 STATUS : DIS IN PAT#: [id number] AGE: 46 ADM/REG DATE : 07/10/16 MR#: [id number] REPORT SERV DATE: 07/23/16 DICTATED BY: JUAN M PARKINSON DATE: 07/23/16 REPORT STATUS : Draft TRANSCRIBED BY: ABNER DATE: 07/23/16 O2 saturation was 94% on room air. His pancytopenia was felt secondary to chemotherapy. Dexamethasone was going to be resumed. Cytoxan was held. Antibiotics were continued. Diflucan was going to be added. Hemodialysis therapy continued. On 07/13/2016, his temperature was 100.5. He had a minimal rash that was not bothersome. He said he felt well. All cultures were negative to date. Dexamethasone was continued. Cytoxan remained on hold. No transfusion was needed at this time. Dialysis therapy would be continued. He continued to have an aches in his knees. His edema had resolved. He said he felt good overall. Antibiotics were continued. Discharge planning was performed. On 07/15/2016, he had no new complaints. He felt like he was ready to go home. His T-max was 99.6. Levaquin and vancomycin were continued. Discharge instructions were given. Due to his improved and stable condition, he was discharged home with the above-stated instructions. Information collected by: Harleen Payton I submit the above information as my discharge summary. MARY/ABNER Juan M Parkinson M.D. / [id number] CC: Lee Pride FRANKLIN H Darrell Johnson, M.D.
[~2016-07-10 16:01] MED LIST changes: +CYCLOPHOSPHAMID50 MG PO; +PCET PO; +SEVE800T PO; +TUMSROLL PO; +VANCO1P
[2016-07-10 16:32] LABS: BASOPHILS 0 %; EOSINOPHILS ABSOLUTE 0.04 10/3/uL (0.0-0.53); HEMATOCRIT 23.2 % (40.0-51.0); HEMOGLOBIN 8.1 g/dL (13.6-17.8); IMMATURE GRANULOCYTES ABSOLUTE 0.01 10/3/uL (0.0-0.11); LYMPHOCYTES 5.9 %; LYMPHOCYTES ABSOLUTE 0.06 10/3/uL (0.67-4.30); MEAN CORPUS HGB CONC 34.9 g/dL (32.0-36.0); MEAN CORPUSCULAR VOLUME 85.9 fL (80-100); MEAN PLATELET VOLUME 9.6 fL (9.2-13.0); MONOCYTES 5.9 %; MONOCYTES ABSOLUTE 0.06 10/3/uL (0.21-1.20); NEUTROPHILS 83.2 %; NEUTROPHILS ABSOLUTE 0.84 10/3/uL (2.02-8.40); RBC DISTRIBUTION WIDTH 14.6 % (12.0-16.0)
[2016-07-10 16:33] LABS: ER CBC TAT 0 Hrs 08 Mins
[2016-07-10 16:34] LABS: PLATELET COUNT 40 10/3/uL (150-400)
[2016-07-10 16:36] LABS: MANUAL DIFF NO %
[2016-07-10 16:41] LABS: ASCORBIC ACID (UR NOT ORDER) NEG (NEG); BILIRUBIN, URINE NEGATIVE (NEG); ER URINALYSIS TAT 0 Hrs 16 Mins; KETONE, URINE NEGATIVE (NEG); LEUKOCYTE ESTERASE(NOT OR NEG (NEG); NITRITE (URINE) NEG (NEG); WBC (NOT ORDERED) (RFLEX) 2 (0-5)
[2016-07-10 16:47] LABS: A/G RATIO 0.9 (0.7-1.9); ALBUMIN 2.8 G/DL (3.5-5.0); CHLORIDE, SERUM 101 MMOL/L (96-112); CO2 (CARBON DIOXIDE) 28 MMOL/L (24-34); GLOBULIN 3.2 G/DL (2.5-4.1); POTASSIUM, SERUM 4.3 MMOL/L (3.5-5.3); SGOT(AST) 7 U/L (5-40); SGPT(ALT) 18 U/L (5-65); SODIUM, SERUM 138 MMOL/L (135-148); TOTAL BILIRUBIN 0.5 MG/DL (0-1.2)
[2016-07-10 16:49] LABS: ALKALINE PHOSPHATASE 101 U/L (45-117); BUN (BLOOD UREA NITROGEN) 26 MG/DL (6-23); CALCIUM, SERUM 8.3 MG/DL (8.5-10.4); CREATININE 4.64 MG/DL (0.70-1.30); GFR AFRICAN AMERICAN 16 ML/MIN (>=60); GFR NON AFRICAN AMERICAN 14 ML/MIN (>=60); GLUCOSE, SERUM 159 MG/DL (60-99)
[2016-07-10 17:01] LABS: BASOPHILS 2 %; BASOPHILS ABSOLUTE (CALC) 0.02 10/3/uL (0.0-0.16); ER DIFF TAT 0 Hrs 36 Mins; LYMPHOCYTES 1 %; LYMPHOCYTES ABSOLUTE (CALC) 0.01 10/3/uL (0.67-4.30); MONOCYTES 4 %; MONOCYTES ABSOLUTE (CALC) 0.04 10/3/uL (0.21-1.20); NEUTROPHILS ABSOLUTE (CALC) 0.93 10/3/uL (2.02-8.40); SEGMENTED NEUTROPHIL (0) 93 %; TOTAL NUCLEATED CELLS 100
[2016-07-10 17:09] LABS: OVALOCYTES 1+ (3-10/OIF) (0-2/OIF)
[2016-07-10 17:10] LABS: TEARDROP SHAPED RBCS OCC (0-2/OIF)
[2016-07-10 17:11] LABS: HELMET CELLS OCC (0-2/OIF)
[2016-07-10] MEDS ORDERED: ACET500CAP PO (18:50)
[2016-07-10] MEDS ORDERED: ZOMETA4 MG/5 ML IV (18:52)
[2016-07-10] MEDS ORDERED: CLARIT10 PO (18:53)
[2016-07-10] MEDS ORDERED: ROCALTROL0.5 MCG PO (18:53)
[2016-07-11 06:43] LABS: HEMATOCRIT 22.1 % (40.0-51.0); HEMOGLOBIN 7.4 g/dL (13.6-17.8); MEAN CORPUS HGB CONC 33.5 g/dL (32.0-36.0); MEAN CORPUSCULAR HEMOGLOB 29.7 pg (26.0-34.0); MEAN PLATELET VOLUME 9.9 fL (9.2-13.0); RBC DISTRIBUTION WIDTH 14.5 % (12.0-16.0); RED CELL COUNT 2.49 10/6/uL (4.7-6.1)
[2016-07-11 06:44] LABS: MEAN CORPUSCULAR VOLUME 88.8 fL (80-100); PLATELET COUNT 38 10/3/uL (150-400); WHITE BLOOD CELLS 0.8 10/3/uL (4.5-10.5)
[2016-07-11 06:45] LABS: MANUAL DIFF YES %
[2016-07-11 06:54] LABS: A/G RATIO 0.9 (0.7-1.9); ALBUMIN 2.5 G/DL (3.5-5.0); CALCIUM, SERUM 7.6 MG/DL (8.5-10.4); CHLORIDE, SERUM 105 MMOL/L (96-112); CO2 (CARBON DIOXIDE) 25 MMOL/L (24-34); GLOBULIN 2.8 G/DL (2.5-4.1); POTASSIUM, SERUM 4.9 MMOL/L (3.5-5.3); SGOT(AST) 7 U/L (5-40); SGPT(ALT) 15 U/L (5-65); SODIUM, SERUM 141 MMOL/L (135-148); TOTAL BILIRUBIN 0.4 MG/DL (0-1.2); TOTAL PROTEIN 5.3 G/DL (6.0-8.5); VANCOMYCIN TROUGH 25.6 MCG/ML (10.0-20.0)
[2016-07-11 06:55] LABS: ALKALINE PHOSPHATASE 84 U/L (45-117); BUN (BLOOD UREA NITROGEN) 36 MG/DL (6-23); CREATININE 6.42 MG/DL (0.70-1.30); GFR AFRICAN AMERICAN 11 ML/MIN (>=60); GFR NON AFRICAN AMERICAN 9 ML/MIN (>=60); GLUCOSE, SERUM 92 MG/DL (60-99)
[2016-07-11 07:57] LABS: BAND NEUTROPHILS 12 %; BASOPHILS 4 %; BASOPHILS ABSOLUTE (CALC) 0.03 10/3/uL (0.0-0.16); EOSINOPHILS 4 %; EOSINOPHILS ABSOLUTE (CALC) 0.03 10/3/uL (0.0-0.53); LYMPHOCYTES 12 %; NEUTROPHILS ABSOLUTE (CALC) 0.64 10/3/uL (2.02-8.40); SEGMENTED NEUTROPHIL (0) 68 %; TOTAL NUCLEATED CELLS 100
[2016-07-11 07:58] LABS: RBC MORPHOLOGY NORM (NORMAL)
[2016-07-12 06:13] LABS: HEMATOCRIT 21.1 % (40.0-51.0); HEMOGLOBIN 7.3 g/dL (13.6-17.8); MEAN CORPUS HGB CONC 34.6 g/dL (32.0-36.0); MEAN CORPUSCULAR HEMOGLOB 30.4 pg (26.0-34.0); MEAN CORPUSCULAR VOLUME 87.9 fL (80-100); MEAN PLATELET VOLUME 8.9 fL (9.2-13.0); RBC DISTRIBUTION WIDTH 14.3 % (12.0-16.0)
[2016-07-12 06:24] LABS: PLATELET COUNT 34 10/3/uL (150-400); WHITE BLOOD CELLS 0.8 10/3/uL (4.5-10.5)
[2016-07-12 06:25] LABS: MANUAL DIFF YES %
[2016-07-12 07:12] LABS: BAND NEUTROPHILS 4 %; EOSINOPHILS 4 %; EOSINOPHILS ABSOLUTE (CALC) 0.03 10/3/uL (0.0-0.53); LYMPHOCYTES 14 %; LYMPHOCYTES ABSOLUTE (CALC) 0.11 10/3/uL (0.67-4.30); MONOCYTES 8 %; MONOCYTES ABSOLUTE (CALC) 0.06 10/3/uL (0.21-1.20); NEUTROPHILS ABSOLUTE (CALC) 0.59 10/3/uL (2.02-8.40); SEGMENTED NEUTROPHIL (0) 70 %; TOTAL NUCLEATED CELLS 50
[2016-07-12 07:13] LABS: POLYCHROMASIA 1+ (2-5/OIF) (0-1/OIF)
[2016-07-12 11:06] LABS: ALBUMIN 2.5 G/DL (3.5-5.0); CALCIUM, SERUM 7.3 MG/DL (8.5-10.4); CHLORIDE, SERUM 103 MMOL/L (96-112); CO2 (CARBON DIOXIDE) 24 MMOL/L (24-34); GLUCOSE, SERUM 81 MG/DL (60-99); POTASSIUM, SERUM 5.7 MMOL/L (3.5-5.3); SODIUM, SERUM 137 MMOL/L (135-148)
[2016-07-12 11:14] LABS: BUN (BLOOD UREA NITROGEN) 56 MG/DL (6-23); CREATININE 9.31 MG/DL (0.70-1.30); GFR AFRICAN AMERICAN 7 ML/MIN (>=60); GFR NON AFRICAN AMERICAN 6 ML/MIN (>=60); PHOSPHORUS, SERUM 2.4 MG/DL (2.5-4.5)
[2016-07-13 04:41] LABS: HEMATOCRIT 23.1 % (40.0-51.0); HEMOGLOBIN 7.7 g/dL (13.6-17.8); MEAN CORPUS HGB CONC 33.3 g/dL (32.0-36.0); MEAN CORPUSCULAR HEMOGLOB 29.5 pg (26.0-34.0); MEAN CORPUSCULAR VOLUME 88.5 fL (80-100); MEAN PLATELET VOLUME 9.6 fL (9.2-13.0); RBC DISTRIBUTION WIDTH 13.8 % (12.0-16.0); RED CELL COUNT 2.61 10/6/uL (4.7-6.1)
[2016-07-13 04:42] LABS: MANUAL DIFF YES %; PLATELET COUNT 52 10/3/uL (150-400)
[2016-07-13 07:23] LABS: BAND NEUTROPHILS 4 %; EOSINOPHILS 1 %; EOSINOPHILS ABSOLUTE (CALC) 0.01 10/3/uL (0.0-0.53); LYMPHOCYTES 5 %; LYMPHOCYTES ABSOLUTE (CALC) 0.05 10/3/uL (0.67-4.30); MONOCYTES 6 %; MONOCYTES ABSOLUTE (CALC) 0.06 10/3/uL (0.21-1.20); NEUTROPHILS ABSOLUTE (CALC) 0.88 10/3/uL (2.02-8.40); SEGMENTED NEUTROPHIL (0) 84 %; TOTAL NUCLEATED CELLS 100
[2016-07-13 07:24] LABS: PLATELET ESTIMATE DEC (ADEQUATE); RBC MORPHOLOGY NORM (NORMAL)
[2016-07-14 05:44] LABS: HEMATOCRIT 21.3 % (40.0-51.0); HEMOGLOBIN 7.6 g/dL (13.6-17.8); MEAN CORPUSCULAR HEMOGLOB 30.4 pg (26.0-34.0); MEAN PLATELET VOLUME 9.8 fL (9.2-13.0)
[2016-07-14 05:50] LABS: MEAN CORPUS HGB CONC 35.7 g/dL (32.0-36.0); MEAN CORPUSCULAR VOLUME 85.2 fL (80-100); PLATELET COUNT 45 10/3/uL (150-400); WHITE BLOOD CELLS 1.7 10/3/uL (4.5-10.5)
[2016-07-14 05:51] LABS: ALBUMIN 2.7 G/DL (3.5-5.0); CALCIUM, SERUM 8.1 MG/DL (8.5-10.4); CHLORIDE, SERUM 103 MMOL/L (96-112); CO2 (CARBON DIOXIDE) 21 MMOL/L (24-34); GFR AFRICAN AMERICAN 7 ML/MIN (>=60); GFR NON AFRICAN AMERICAN 6 ML/MIN (>=60); MANUAL DIFF YES %; PHOSPHORUS, SERUM 2.6 MG/DL (2.5-4.5); POTASSIUM, SERUM 4.9 MMOL/L (3.5-5.3); SODIUM, SERUM 139 MMOL/L (135-148)
[2016-07-14 05:53] LABS: BUN (BLOOD UREA NITROGEN) 71 MG/DL (6-23); GLUCOSE, SERUM 142 MG/DL (60-99)
[2016-07-14 06:31] LABS: BAND NEUTROPHILS 12 %; LYMPHOCYTES 6 %; MONOCYTES 12 %; NEUTROPHILS ABSOLUTE (CALC) 1.39 10/3/uL (2.02-8.40); RBC MORPHOLOGY NORM (NORMAL); SEGMENTED NEUTROPHIL (0) 70 %; TOTAL NUCLEATED CELLS 100
[2016-07-15 05:50] LABS: HEMATOCRIT 21.2 % (40.0-51.0); HEMOGLOBIN 7.6 g/dL (13.6-17.8); MEAN CORPUS HGB CONC 35.8 g/dL (32.0-36.0); MEAN CORPUSCULAR HEMOGLOB 30.5 pg (26.0-34.0); MEAN CORPUSCULAR VOLUME 85.1 fL (80-100); PLATELET COUNT 50 10/3/uL (150-400); RBC DISTRIBUTION WIDTH 13.9 % (12.0-16.0); RED CELL COUNT 2.49 10/6/uL (4.7-6.1)
[2016-07-15 05:59] LABS: MANUAL DIFF YES %
[2016-07-15 06:03] LABS: ALBUMIN 2.6 G/DL (3.5-5.0); CHLORIDE, SERUM 103 MMOL/L (96-112); CO2 (CARBON DIOXIDE) 20 MMOL/L (24-34); GFR AFRICAN AMERICAN 6 ML/MIN (>=60); GFR NON AFRICAN AMERICAN 5 ML/MIN (>=60); GLUCOSE, SERUM 128 MG/DL (60-99); PHOSPHORUS, SERUM 2.6 MG/DL (2.5-4.5); SODIUM, SERUM 139 MMOL/L (135-148); VANCOMYCIN TROUGH 17.8 MCG/ML (10.0-20.0)
[2016-07-15 06:04] LABS: BUN (BLOOD UREA NITROGEN) 99 MG/DL (6-23)
[2016-07-15 07:09] LABS: BAND NEUTROPHILS 2 %; LYMPHOCYTES 6 %; LYMPHOCYTES ABSOLUTE (CALC) 0.12 10/3/uL (0.67-4.30); MONOCYTES 10 %; NEUTROPHILS ABSOLUTE (CALC) 1.68 10/3/uL (2.02-8.40); PLATELET ESTIMATE DEC (ADEQUATE); RBC MORPHOLOGY NORM (NORMAL); SEGMENTED NEUTROPHIL (0) 82 %; TOTAL NUCLEATED CELLS 100
[2016-07-15] MEDS ORDERED: LEVAQUIN750 MG PO (12:49)
[2016-10-11] MEDS ORDERED: ZOVI200CAP PO (17:45)
[2016-10-11] MEDS ORDERED: DEX4 PO (17:50)
[2016-10-11] MEDS ORDERED: PROTONIX PO (17:52)
[2016-10-11] MEDS ORDERED: RENVELA800 MG PO (17:52)
[2016-10-11] MEDS ORDERED: ROCALTROL0.5 MCG PO (17:53)
[2016-10-11] MEDS ORDERED: MAGNESIUM PO (17:54)
[2016-10-11] MEDS ORDERED: CLARIT10 PO (17:54)
[2016-10-11] MEDS ORDERED: SPIRULINA500 MG PO (17:54)
[2016-10-11] MEDS ORDERED: TUMSROLL PO (17:55)
[2016-10-11] MEDS ORDERED: REFRESH OPH (17:57)
== END 2016-07-15 14:30 | disposition home or self-care (01) | DRG 808 ==
LOC: ER 16:01 → 5NO 19:58
PROVIDERS: Emergency Medicine; Internal Medicine Nephrology
PROC: 5A1D60Z (ICD-10-PCS; principal; 2016-07-12)
DX: D70.9 Neutropenia, unspecified (principal); N18.6 End stage renal disease; N17.9 Acute kidney failure, unspecified; C90.00 Multiple myeloma not having achieved remission; I12.0 Hypertensive chronic kidney disease with stage 5 chronic kidney disease or end stage renal disease; Z87.891 Personal history of nicotine dependence; Z99.2 Dependence on renal dialysis; R50.81 Fever presenting with conditions classified elsewhere; D63.1 Anemia in chronic kidney disease
CPT/HCPCS: 71020; 80053; 80069; 80202; 81001; 82330; 83605; 83735; 84132; 84145; 84550; 85025; 87040; 99284; A9270-GY; G0257; J0692; J1956; J3370

== ENCOUNTER 2016-07-18 19:22 | Emergency (ER) | payer BC ==
[2016-07-18 18:46] LABS: BASOPHILS 0 %; EOSINOPHILS 2.5 %; EOSINOPHILS ABSOLUTE 0.05 10/3/uL (0.0-0.53); HEMOGLOBIN 7.1 g/dL (13.6-17.8); IMMATURE GRANULOCYTES 9.9 %; LYMPHOCYTES 5.9 %; LYMPHOCYTES ABSOLUTE 0.12 10/3/uL (0.67-4.30); MEAN CORPUSCULAR HEMOGLOB 31.4 pg (26.0-34.0); MEAN CORPUSCULAR VOLUME 87.2 fL (80-100); MEAN PLATELET VOLUME 8.5 fL (9.2-13.0); MONOCYTES 7.9 %; MONOCYTES ABSOLUTE 0.16 10/3/uL (0.21-1.20); NEUTROPHILS 73.8 %; PLATELET COUNT 65 10/3/uL (150-400); RBC DISTRIBUTION WIDTH 14.6 % (12.0-16.0); RED CELL COUNT 2.26 10/6/uL (4.7-6.1)
[2016-07-18 18:48] LABS: ER CBC TAT 0 Hrs 13 Mins; HEMATOCRIT 19.7 % (40.0-51.0)
[2016-07-18 18:49] LABS: MANUAL DIFF NO %
[2016-07-18 18:51] LABS: ASCORBIC ACID (UR NOT ORDER) NEG (NEG); BILIRUBIN, URINE NEGATIVE (NEG); ER URINALYSIS TAT 0 Hrs 16 Mins; KETONE, URINE NEGATIVE (NEG); LEUKOCYTE ESTERASE(NOT OR NEG (NEG); NITRITE (URINE) NEG (NEG); WBC (NOT ORDERED) (RFLEX) 1 (0-5)
[2016-07-18 18:56] LABS: INTERNATIONAL NORMAL RATI 1.2 UNITS (-); PARTIAL THROMBO TIME 30.6 SEC (22.5-37.2); PROTIME (NOT ORD) 14.7 SEC (12.0-14.5)
[2016-07-18 18:59] LABS: A/G RATIO 0.8 (0.7-1.9); ALBUMIN 2.6 G/DL (3.5-5.0); ALKALINE PHOSPHATASE 95 U/L (45-117); BUN (BLOOD UREA NITROGEN) 70 MG/DL (6-23); CALCIUM, SERUM 7.1 MG/DL (8.5-10.4); CHLORIDE, SERUM 98 MMOL/L (96-112); CO2 (CARBON DIOXIDE) 29 MMOL/L (24-34); CREATININE 8.19 MG/DL (0.70-1.30); GFR AFRICAN AMERICAN 8 ML/MIN (>=60); GFR NON AFRICAN AMERICAN 7 ML/MIN (>=60); GLOBULIN 3.1 G/DL (2.5-4.1); GLUCOSE, SERUM 93 MG/DL (60-99); POTASSIUM, SERUM 4.4 MMOL/L (3.5-5.3); SGOT(AST) 7 U/L (5-40); SGPT(ALT) 16 U/L (5-65); SODIUM, SERUM 136 MMOL/L (135-148); TOTAL BILIRUBIN 0.3 MG/DL (0-1.2); TOTAL PROTEIN 5.7 G/DL (6.0-8.5)
[2016-07-18 19:02] LABS: LACTATE 0.8 MMOL/L (0.3-2.4)
[2016-07-18 19:08] LABS: BAND NEUTROPHILS 8 %; EOSINOPHILS 1 %; EOSINOPHILS ABSOLUTE (CALC) 0.02 10/3/uL (0.0-0.53); ER DIFF TAT 0 Hrs 33 Mins; IMMATURE GRANS ABSOLUTE (CALC) 0.02 10/3/uL (0.0-0.11); IMMATURE MONONUCLEAR 1 % (0); LYMPHOCYTES 4 %; LYMPHOCYTES ABSOLUTE (CALC) 0.08 10/3/uL (0.67-4.30); METAMYELOCYTES 1 %; MONOCYTES 6 %; MONOCYTES ABSOLUTE (CALC) 0.12 10/3/uL (0.21-1.20); NEUTROPHILS ABSOLUTE (CALC) 1.74 10/3/uL (2.02-8.40); PLATELET ESTIMATE DEC (ADEQUATE); SEGMENTED NEUTROPHIL (0) 79 %; TOTAL NUCLEATED CELLS 100
[2016-07-18 19:09] LABS: ANISOCYTOSIS 1+ (5-10/OIF) (0-5/OIF); ELLIPTOCYTES 1+ (3-10/OIF) (0-2/OIF); MICROCYTES 1+ (5-10/OIF) (0-5/OIF); OVALOCYTES 1+ (3-10/OIF) (0-2/OIF); POIKILOCYTOSIS 1+ (5-10/OIF) (0-5/OIF)
[~2016-07-18 19:22] MED LIST changes: +ACET500CAP PO; +CLARIT10 PO; +LEVAQUIN750 MG PO; +ROCALTROL0.5 MCG PO; +ZOMETA4 MG/5 ML IV
[2016-10-11] MEDS ORDERED: ZOVI200CAP PO (17:45)
[2016-10-11] MEDS ORDERED: DEX4 PO (17:50)
[2016-10-11] MEDS ORDERED: RENVELA800 MG PO (17:52)
[2016-10-11] MEDS ORDERED: PROTONIX PO (17:52)
[2016-10-11] MEDS ORDERED: ROCALTROL0.5 MCG PO (17:53)
[2016-10-11] MEDS ORDERED: CLARIT10 PO (17:54)
[2016-10-11] MEDS ORDERED: SPIRULINA500 MG PO (17:54)
[2016-10-11] MEDS ORDERED: MAGNESIUM PO (17:54)
[2016-10-11] MEDS ORDERED: TUMSROLL PO (17:55)
[2016-10-11] MEDS ORDERED: REFRESH OPH (17:57)
== END 2016-07-18 19:54 | disposition home or self-care (01) ==
LOC: ER 19:22
PROVIDERS: Specialist
DX: D69.6 Thrombocytopenia, unspecified (principal); D46.9 Myelodysplastic syndrome, unspecified; Z87.891 Personal history of nicotine dependence; Z79.899 Other long term (current) drug therapy
CPT/HCPCS: 71020; 80053; 81001; 83605; 83690; 85025; 85610; 85730; 87040; 93005; 99284; A9270-GY